=== PATIENT | female | born 1975 | race Caucasian/White ===

== ENCOUNTER 2018-09-04 13:49 | Emergency (ER) | payer MEDICAID, SELFPAY ==
[2018-09-04 14:06] VITALS: BP 149/98; PULSE 105; RESP 22; TEMP 37; O2SAT 100; BMI 21.1
[2018-09-04 14:36] VITALS: BP 149/98; PULSE 105; RESP 22; TEMP 37; O2SAT 100; BMI 21.1
--- NOTE | 2018-09-04 14:58 | HMH.EDUTC ---
[facility] [facility] [place] Clinical Impression: Scabies, Impetigo Disposition: Home, Self-Care Condition on Discharge: Good Instructions: Scabies, Impetigo, DI for Impetigo, DI for Scabies Additional Instructions: Drink plenty of fluids. Take tylenol or ibuprofen for pain or fever Take all the antibiotics as prescribed. Take oral benedryl for itching if you need to. Follow up with your regular doctor. GO TO THE ER FOR ANY WORSENING OR LIFE THREATENING SYMPTOMS Prescriptions: Mupirocin [Bactroban 2% Ointment 22gm tube] 1 applicatio TP TID 7 Days #1 tube Permethrin [Elimite] 1 applicatio TP ONCE #1 bottle cephALEXin [Keflex 500mg Cap] 500 mg PO Q6H 10 Days #40 cap methylPREDNISolone [Medrol] 4 mg PO DIRECTED 6 Days #21 [email or web address] Referrals: Walker Chairez [Primary Care Provider] - Time of Disposition: 15:23 Medical Decision Making - Medical Records Medical records reviewed: Yes: I reviewed the patient's medical records. - Chidi Inquiry Pt receiving controlled substance: No Chidi was queried for this patient: No Vital Signs: 09/04/18 14:06 09/04/18 14:36 09/04/18 15:44 Temperature 98.6 F 98.6 F 98.6 F Temperature Source Oral Oral Oral Pulse Rate 105 H Pulse Rate [Left Radial] 105 H 105 H Respiratory Rate 22 22 22 Blood Pressure 149/98 H Blood Pressure [Left Arm] 149/98 H 149/98 H Blood Pressure Mean [Left Arm] 115 115 Blood Pressure Source Automatic Cuff Blood Pressure Source [Left Arm] Automatic Cuff Automatic Cuff Blood Pressure Position Sitting Blood Pressure Position [Left Arm] Supine Supine 02 Sat by Pulse Oximetry 100 100 Oxygen Delivery Method Room Air Room Air Room Air Orders (Tests/Meds): ORDERS Category Date Time Status Wound Culture and Gram Stain Stat Micro 09/04/18 15:00 Results Medical Decision Narrative: culture of drainage taken from the worst lesion for gram stain and sensitivity. [facility] [place] - General Stated complaint: Skin Rash Time Seen by Provider: 09/04/18 14:40 Mode of Arrival: Ambulatory Source of Information: Patient Limitations: No Limitations Description of Symptoms (Recalled from Triage Doc. by RN): C/O RASH THAT HAS BEEN PROGRESSIVELY GETTING WORSE SINCE July HEENT Symptoms (Recalled from RN notes): No Resp Symptoms (Recalled from RN notes): No Skin Symptoms (Recalled from RN notes): Yes MS Symptoms (Recalled from RN notes): No Functional Status (Recalled from RN notes): wnl - History of Present Illness Provider Complaint: She states that she has been itching and having a rash for the past 2 weeks approx. Her boyfriend is having similar symptoms. She now has multiple scabbed lesions on her upper back and back of her neck. - Related Data Previous Rx's Medication Instructions Recorded Mupirocin [Bactroban 2% Ointment 1 applicatio TP TID 7 Days #1 tube 09/04/18 22gm tube] Permethrin [Elimite] 1 applicatio TP ONCE #1 bottle 09/04/18 cephALEXin [Keflex 500mg Cap] 500 mg PO Q6H 10 Days #40 cap 09/04/18 methylPREDNISolone [Medrol] 4 mg PO DIRECTED 6 Days #21 09/04/18 [email or web address] Allergies Allergy/AdvReac Type Severity Reaction Status Date / Time No Known Allergies Allergy Verified 09/04/18 14:39 - Worker's Comp Is this a Worker's Comp case?: No [facility] History - Hepatitis A Screen Drug use history?: No High risk sexual behaviors?: No History of sexually transmitted infection?: No Currently employed?: No Childcare worker?: No Do you have indoor plumbing?: Yes Do you have electricity?: Yes Attestation statement:: This patient has been screened for Hepatitis A risk factors. I have reviewed the patient's past medical history: Yes Laterality Cases: Bilateral: Tonsillectomy - Social History Educational Level: Completed High School Alcohol Intake: never Occupational Status: other Housing: apartment - Psychiatric History Expresses thoughts of harming self/others: None Suicide Plan
--- NOTE | 2018-09-04 15:08 | ED_ITS ---
[facility] – [place] Disposition Clinical Impression: Scabies, Impetigo Disposition: Home, Self-Care Condition on Discharge: Good Instructions: Scabies, Impetigo, DI for Impetigo, DI for Scabies Additional Instructions: Drink plenty of fluids. Take tylenol or ibuprofen for pain or fever Take all the antibiotics as prescribed. Take oral benedryl for itching if you need to. Follow up with your regular doctor. GO TO THE ER FOR ANY WORSENING OR LIFE THREATENING SYMPTOMS Prescriptions: Mupirocin [Bactroban 2% Ointment 22gm tube] 1 applicatio TP TID 7 Days #1 tube Permethrin [Elimite] 1 applicatio TP ONCE #1 bottle cephALEXin [Keflex 500mg Cap] 500 mg PO Q6H 10 Days #40 cap methylPREDNISolone [Medrol] 4 mg PO DIRECTED 6 Days #21 [email or web address] Referrals: Walker Chairez [Primary Care Provider] - Time of Disposition: 15:23 Medical Decision Making - Medical Records Medical records reviewed: Yes: I reviewed the patient's medical records. - Chidi Inquiry Pt receiving controlled substance: No Chidi was queried for this patient: No Vital Signs: 09/04/18 14:06 09/04/18 14:36 09/04/18 15:44 Temperature 98.6 F 98.6 F 98.6 F Temperature Source Oral Oral Oral Pulse Rate 105 H Pulse Rate [Left Radial] 105 H 105 H Respiratory Rate 22 22 22 Blood Pressure 149/98 H Blood Pressure [Left Arm] 149/98 H 149/98 H Blood Pressure Mean [Left Arm] 115 115 Blood Pressure Source Automatic Cuff Blood Pressure Source [Left Arm] Automatic Cuff Automatic Cuff Blood Pressure Position Sitting Blood Pressure Position [Left Arm] Supine Supine 02 Sat by Pulse Oximetry 100 100 Oxygen Delivery Method Room Air Room Air Room Air Orders (Tests/Meds): ORDERS Category Date Time Status Wound Culture and Gram Stain Stat Micro 09/04/18 15:00 Results Medical Decision Narrative: culture of drainage taken from the worst lesion for gram stain and sensitivity. [facility] [place] HPI - General Stated complaint: Skin Rash Time Seen by Provider: 09/04/18 14:40 Mode of Arrival: Ambulatory Source of Information: Patient Limitations: No Limitations Description of Symptoms (Recalled from Triage Doc. by RN): C/O RASH THAT HAS BEEN PROGRESSIVELY GETTING WORSE SINCE July HEENT Symptoms (Recalled from RN notes): No Resp Symptoms (Recalled from RN notes): No Skin Symptoms (Recalled from RN notes): Yes MS Symptoms (Recalled from RN notes): No Functional Status (Recalled from RN notes): wnl - History of Present Illness Provider Complaint: She states that she has been itching and having a rash for the past 2 weeks approx. Her boyfriend is having similar symptoms. She now has multiple scabbed lesions on her upper back and back of her neck. - Related Data Previous Rx's Medication Instructions Recorded Mupirocin [Bactroban 2% Ointment 1 applicatio TP TID 7 Days #1 tube 09/04/18 22gm tube] Permethrin [Elimite] 1 applicatio TP ONCE #1 bottle 09/04/18 cephALEXin [Keflex 500mg Cap] 500 mg PO Q6H 10 Days #40 cap 09/04/18 methylPREDNISolone [Medrol] 4 mg PO DIRECTED 6 Days #21 09/04/18 [email or web address] Allergies Allergy/AdvReac Type Severity Reaction Status
[2018-09-04 15:44] VITALS: BP 149/98; PULSE 105; RESP 22; TEMP 37; O2SAT 100
--- NOTE | 2018-09-06 09:26 | PC.NURSE ---
Critical lab value received from lab. Wound culture positive for mrsa. Dodie Chu APRN notified and medications changed and patient to be informed of results and changes
== END 2018-09-04 15:45 | disposition home or self-care (01) ==
LOC: ER 14:09 → UTC 14:14
PROVIDERS: Emergency Provider Nurse Practitioner Family; PCP Family Medicine
DX: L01.00 Impetigo, unspecified (principal); B86 Scabies
CPT/HCPCS: 87070; 87077; 87186; 87205; 99201

== ENCOUNTER 2019-10-06 16:45 | Emergency (ER) | payer MEDICAID, SELFPAY ==
[2019-10-06 17:00] VITALS: BP 00/00; PULSE 0; RESP 0; TEMP -17.7; TEMP 0
== END 2019-10-06 17:10 | disposition left against medical advice (07) ==
LOC: UTC 16:52
PROVIDERS: Emergency Provider Nurse Practitioner Family
DX: Z53.21 Procedure and treatment not carried out due to patient leaving prior to being seen by health care provider (principal); R51 Headache

== ENCOUNTER → 2019-12-31 15:50 | Outpatient (CLI) | payer MEDICAID, SELFPAY ==
--- NOTE | 2019-12-31 16:22 | MR_ITS ---
PROCEDURE: MR HEAD/BRAIN WO CON CLINICAL INDICATION: memory loss MEMORY LOSS, MIGRAINES WEEKLY, BELLS PALSY IN RIGHT EYE IN SEPTEMBER. ALTERED GAIT. NO PRIOR COMPARISON: No exams were available for comparison TECHNIQUE: Routine multiplanar multi echo sequences are performed without gadolinium enhancement. FINDINGS: No midline shift, mass effect, intracranial hemorrhage, or hydrocephalus is evident. The cerebellopontine angles, cerebellum, and brainstem have an unremarkable appearance. No evidence of acute infarction. There are perivascular dilated spaces in the basal ganglia. A cystic areas present in the left basal ganglia at 8 mm the and may be due to a choroidal fissure cyst as an incidental finding. The pituitary, optic chiasm, corpus callosum, and craniocervical junction have an unremarkable appearance. There is some bulging of the disc at C5-C6 which may be causing some mild canal stenosis. This however is on the edge of the imaging plane not well delineated. There is tortuous left-sided vertebral artery which is the dominant vertebral artery causing some flattening upon the left aspect of the brainstem which is of questionable clinical significance. Correlation with clinical findings needed as regarding the significance. No mastoid effusion. Mucosal thickening involves the ethmoid sinuses. IMPRESSION: 1. No acute intracranial findings. 2. Tortuous dominant left vertebral artery with some flattening of the brainstem on the left which is of questionable clinical significance. Correlation with clinical parameters and physical exam suggested 3. Mild ethmoid sinus disease Dictated by: Tyler Ramirez MD 01/01/2020 14:58 Tyler Ramirez MD in [place] 01/01/2020 14:58
== END ==
PROVIDERS: PCP Nurse Practitioner Family; Visit Provider Specialist
DX: G51.0 Bell's palsy (principal); G43.709 Chronic migraine without aura, not intractable, without status migrainosus; R41.3 Other amnesia; F10.11 Alcohol abuse, in remission; I10 Essential (primary) hypertension; R53.83 Other fatigue; Z86.69 Personal history of other diseases of the nervous system and sense organs; Z86.73 Personal history of transient ischemic attack (TIA), and cerebral infarction without residual deficits
CPT/HCPCS: 70551

== ENCOUNTER → 2020-01-07 13:51 | Outpatient (CLI) | payer MEDICAID, SELFPAY ==
[2020-01-07 14:14] LABS: Basophils # 0.1 K/mm3 (0-0.2); Basophils % 1.2 % (0.1-2.0); Eosinophils # 0.1 K/mm3 (0.0-0.4); Eosinophils % 1.7 % (0.1-12.0); Hematocrit 43.2 % (37.0-47.0); Hemoglobin 13.7 g/dL (12.2-16.2); Lymphocytes # 3.1 K/mm3 (0.7-4.5); Lymphocytes % 49.4 % (10-50); Mean Corpuscular HGB Conc 31.7 g/dL (31.8-35.4); Mean Corpuscular Hemoglobin 29.8 pg (27.0-31.2); Mean Corpuscular Volume 94.1 fl (81-99); Mean Platelet Volume 7.6 fl (7.4-10.4); Monocytes # 0.4 K/mm3 (0.1-1.0); Monocytes % 6.3 % (1.7-9.3); Neutrophils # 2.6 K/mm3 (1.8-7.8); Neutrophils % 41.4 % (37.0-80.0); Platelet Count 250 K/mm3 (142-424); Red Blood Count 4.59 M/mm3 (4.20-5.40); Red Cell Distribution Width 13.5 % (11.5-17.5); White Blood Count 6.4 K/mm3 (4.8-10.8)
[2020-01-07 14:34] LABS: Chloride 102 mmol/L (98-107); Potassium 4.2 mmoL/L (3.5-5.1); Sodium 137 mmol/L (136-145)
[2020-01-07 14:37] LABS: Alanine Aminotransferase 26 U/L (12-78); Albumin Level 4.2 g/dl (3.5-5.0); Albumin/Globulin Ratio 1.4 (1.1-1.8); Alkaline Phosphatase 117 U/L (38-126); Anion Gap 11.2 mEq/L (5-15); Aspartate Amino Transferase 37 U/L (14-36); Bilirubin,Total 0.3 mg/dl (0.2-1.3); Blood Urea Nitrogen 16 mg/dl (7-17); Carbon Dioxide 28 mmol/L (22.0-30.0); Estimated Glomerular Filt Rate 91 ml/min (>60); GFR (African American) 110 ML/MIN (>60); Globulin 3.1 g/dL (1.3-3.2); Glucose 103 mg/dl (74-100); Total Protein,Serum 7.3 g/dl (6.3-8.2)
[2020-01-07 15:06] LABS: Thyroid Stimulating Hormone 2.37 uIU/mL (0.465-4.68)
[2020-01-07 17:18] LABS: Vitamin B12 398 pg/mL (239-931)
[2020-01-07 17:43] LABS: Folate 3.87 ng/mL
[2020-01-14 11:11] LABS: Vitamin B1 226.9 nmol/L (66.5-200.0)
[2020-01-15 03:04] LABS: IgG P18 Ab. Present (.); IgG P23 Ab. Present (.); IgG P28 Ab. Present (.); IgG P30 Ab. Present (.); IgG P39 Ab. Present (.); IgG P41 Ab. Present (.); IgG P45 Ab. Present (.); IgG P58 Ab. Present (.); IgG P66 Ab. Absent (.); IgG P93 Ab. Present (.); IgM P23 Ab. Present (.); IgM P39 Ab. Absent (.); IgM P41 Ab. Present (.)
[2020-01-15 10:05] LABS: Lyme IgG WB Interp. Positive (.); Lyme IgM WB Interp. Positive (.)
== END ==
PROVIDERS: Visit Provider Nurse Practitioner Family
DX: F10.11 Alcohol abuse, in remission (principal); G43.709 Chronic migraine without aura, not intractable, without status migrainosus; G51.0 Bell's palsy; I10 Essential (primary) hypertension; R41.3 Other amnesia; R53.83 Other fatigue; Z86.69 Personal history of other diseases of the nervous system and sense organs; Z86.73 Personal history of transient ischemic attack (TIA), and cerebral infarction without residual deficits
CPT/HCPCS: 36415; 80053; 82607; 82746; 84425; 84443; 85025; 86617; 86618

== ENCOUNTER → 2020-02-02 16:41 | Outpatient (CLI) | payer MEDICAID, SELFPAY ==
[2020-02-02 21:27] LABS: Coronavirus 19 IgG Antibody Negative (Negative); Coronavirus 19 IgM Antibody Negative (Negative)
== END ==
PROVIDERS: Visit Provider Nurse Practitioner Family
DX: Z03.818 Encounter for observation for suspected exposure to other biological agents ruled out (principal)
CPT/HCPCS: 36415; 86328

== ENCOUNTER → 2020-02-09 13:10 | Outpatient (CLI) | payer MEDICAID, SELFPAY ==
[2020-02-09 15:27] LABS: Coronavirus 19 IgG Antibody Negative (Negative); Coronavirus 19 IgM Antibody Negative (Negative)
== END ==
PROVIDERS: Visit Provider Nurse Practitioner Family
DX: Z01.818 Encounter for other preprocedural examination (principal)
CPT/HCPCS: 36415; 86328

== ENCOUNTER → 2020-02-09 20:04 | Outpatient (CLI) | payer MEDICAID, SELFPAY | PROVIDERS: Visit Provider Nurse Practitioner Family | DX: I10 Essential (primary) hypertension (principal); G47.33 Obstructive sleep apnea (adult) (pediatric) | CPT/HCPCS: 95810 ==

== ENCOUNTER 2020-02-19 12:12 | Day surgery (SDC) | payer MEDICAID, SELFPAY ==
[2020-02-19 12:39] VITALS: BP 120/85; PULSE 94; RESP 18; TEMP 36.2; O2SAT 98; BMI 19.5
[2020-02-19 13:08] VITALS: BP 122/89; PULSE 85; RESP 18; TEMP 36.2; O2SAT 98
[2020-02-19 13:18] VITALS: BP 132/74; PULSE 85; RESP 18; O2SAT 98
--- NOTE | 2020-02-19 13:37 | HMH.PMPROC ---
- Procedure Date: 02/19/20 Time: 13:37 Anesthesiologist:: Ajay Silva MD Complications:: None Pre-procedure Diagnosis:: Headache with diagnosis of Lyme disease Post-procedure Diagnosis:: Same Indications for Procedure:: This patient is a pleasant 44-year-old white female who is referred by Dr. Castillo for diagnostic lumbar puncture. Patient has a working diagnosis of Lyme disease. 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 We will do a lumbar puncture under fluoroscopy today to send fluid off for indicated studies over ordered by Dr. Castillo. Procedure Details:: Informed consent was obtained and the risk and benefits of the procedure was explained to the patient. Patient was taken to the procedure room placed in left lateral decubitus position. C-arm fluoroscopy was used for skin and subcutaneous tissues overlying the L4-L5 interspace were anesthetized using lidocaine. A 20-gauge spinal needle was inserted and advanced into the intrathecal space. After obtaining clear CSF opening pressures were taken and found to be 22 cm of water. We then filled 4 tubes full of clear CSF. There is approximately 4 mL in each tube. We took off approximately 18 mL of clear CSF. Closing pressures were found to be 7 cm of water. Needle was removed a Band-Aid was placed. The patient was taken to recovery in stable condition. Patient was discharged home neurologically intact with no headache. I did correctional substance abuse counselor the patient on conservative treatments for post dural puncture headache. Plan and disposition: We will follow-up with this patient as needed. CSF was sent for indicated studies ordered by Dr. Castillo. Plan and Disposition:: Plan and disposition: We will follow-up with this patient as needed. CSF was sent for indicated studies ordered by Dr. Castillo.
[2020-02-19 13:38] VITALS: BP 116/76; PULSE 70; RESP 20; O2SAT 95
== END 2020-02-19 13:39 | disposition home or self-care (01) ==
LOC: SC.PAINP 12:13
PROVIDERS: Visit Provider Anesthesiology
DX: A69.29 Other conditions associated with Lyme disease (principal); G44.89 Other headache syndrome; G51.0 Bell's palsy; I10 Essential (primary) hypertension; F19.11 Other psychoactive substance abuse, in remission; E78.5 Hyperlipidemia, unspecified; K21.9 Gastro-esophageal reflux disease without esophagitis; F41.9 Anxiety disorder, unspecified; F32.9 Major depressive disorder, single episode, unspecified; M19.90 Unspecified osteoarthritis, unspecified site; Z87.39 Personal history of other diseases of the musculoskeletal system and connective tissue; Z72.0 Tobacco use
CPT/HCPCS: 62270

== ENCOUNTER → 2020-02-19 13:46 | Outpatient (CLI) | payer MEDICAID, SELFPAY ==
[2020-02-19 14:24] LABS: Glucose,CSF 50 mg/dl (40-70)
[2020-02-19 14:39] LABS: Appearance,CSF Clear (Clear); Red Blood Cell,CSF 0 cells/uL (0); Volume,CSF 16 mL; White Blood Cell,CSF 6 cells/uL (0-5)
[2020-02-19 15:03] LABS: Mononuclear WBCs,CSF 0 %; Polynuclear WBCs,CSF 3 %
[2020-02-26 20:14] LABS: CSF Lyme (B. burgdorferi) PCR Negative (Negative)
== END ==
PROVIDERS: Visit Provider Specialist
DX: A69.20 Lyme disease, unspecified (principal); R51.9 Headache, unspecified; R41.3 Other amnesia
CPT/HCPCS: 36415; 82945; 83916; 84155; 87070; 87102; 87116; 87205; 87206; 87476; 89051

== ENCOUNTER → 2020-03-22 10:02 | Outpatient (CLI) | payer MEDICAID, SELFPAY ==
[2020-03-22 11:46] LABS: Uric Acid 5.2 mg/dl (2.5-6.2)
[2020-03-22 12:39] LABS: Erythrocyte Sedimentation Rate 6 mm/hr (0-20)
[2020-03-23 09:51] LABS: RA Latex Turbid. 12.7 IU/mL (0.0-13.9)
[2020-03-23 12:26] LABS: Anti-Centromere B Antibodies <0.2 AI (0.0-0.9); Anti-Jo-1 <0.2 AI (0.0-0.9); Anti-Smith Antibody <0.2 AI (0.0-0.9); Antichromatin Antibodies <0.2 AI (0.0-0.9); Antiscleroderma-70 Antibodies <0.2 AI (0.0-0.9); RNP Antibodies <0.2 AI (0.0-0.9); Sjogren's Anti-SS-A <0.2 AI (0.0-0.9); Sjogren's Anti-SS-B <0.2 AI (0.0-0.9)
[2020-03-23 13:35] LABS: Anti-DNA (DS) Ab Qn 1 IU/mL (0-9)
[2020-03-23 23:24] LABS: Antinuclear Antibodies, IFA Negative (.)
== END ==
PROVIDERS: Visit Provider Specialist
DX: M19.90 Unspecified osteoarthritis, unspecified site (principal); M25.50 Pain in unspecified joint; G51.0 Bell's palsy; R51.9 Headache, unspecified
CPT/HCPCS: 36415; 84550; 85651; 86038; 86225; 86235; 86431

== ENCOUNTER → 2020-04-06 10:18 | Outpatient (CLI) | payer MEDICAID, SELFPAY ==
--- NOTE | 2020-04-06 10:29 | XR_ITS ---
PROCEDURE: XR KNEE LT 4V CLINICAL INDICATION: left knee pain COMPARISON: No exams were available for comparison FINDINGS: No fracture or dislocation. No lytic or blastic change. There is normal mineralization. There are median more osteoarthritic changes of the medial compartment and patellofemoral joint. Other findings:None. IMPRESSION: Minimal osteoarthritis Dictated by: Tyler Ramirez MD 04/06/2020 16:55 Tyler Ramirez MD in [place] 04/06/2020 16:55
== END ==
PROVIDERS: PCP Nurse Practitioner Family; Visit Provider Orthopaedic Surgery
DX: M25.562 Pain in left knee (principal)
CPT/HCPCS: 73564

== ENCOUNTER 2021-01-24 15:07 | Emergency (ER) | payer SELFPAY ==
[2021-01-24 15:27] VITALS: BP 158/97; PULSE 112; RESP 18; TEMP 36.9; O2SAT 100; BMI 19.5
--- NOTE | 2021-01-24 15:43 | XR_ITS ---
PROCEDURE: XR SHOULDER LT MIN 2V CLINICAL INDICATION: pain COMPARISON: No exams were available for comparison FINDINGS: No fracture or dislocation. No lytic or blastic change. There is normal mineralization. The joint spaces are well-preserved. No significant degenerative/arthritic changes. No erosive changes evident. Other findings:None. IMPRESSION: No acute findings. Dictated by: Tyler Ramirez MD 01/24/2021 16:39 Tyler Ramirez MD in [place] 01/24/2021 16:39
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
[2021-01-24 16:56] VITALS: BP 158/97; PULSE 112; RESP 18; TEMP 36.9; O2SAT 100
== END 2021-01-24 16:57 | disposition home or self-care (01) ==
PROVIDERS: Emergency Provider Family Medicine
DX: M25.512 Pain in left shoulder (principal); V03.90XA Pedestrian on foot injured in collision with car, pick-up truck or van, unspecified whether traffic or nontraffic accident, initial encounter; Y92.414 Local residential or business street as the place of occurrence of the external cause; F41.8 Other specified anxiety disorders; E78.5 Hyperlipidemia, unspecified; I10 Essential (primary) hypertension; F17.210 Nicotine dependence, cigarettes, uncomplicated; Z79.899 Other long term (current) drug therapy
CPT/HCPCS: 73030; 99282

== ENCOUNTER → 2021-05-18 15:39 | Outpatient (CLI) | payer MEDICAID, SELFPAY ==
[2021-05-25 00:07] LABS: IgG P18 Ab. Present (.); IgG P23 Ab. Absent (.); IgG P28 Ab. Absent (.); IgG P30 Ab. Absent (.); IgG P39 Ab. Present (.); IgG P41 Ab. Present (.); IgG P45 Ab. Absent (.); IgG P58 Ab. Present (.); IgG P66 Ab. Absent (.); IgG P93 Ab. Present (.); IgM P23 Ab. Present (.); IgM P39 Ab. Absent (.); IgM P41 Ab. Present (.); Lyme IgG WB Interp. Positive (.); Lyme IgM WB Interp. Positive (.)
== END ==
PROVIDERS: Visit Provider Specialist
DX: R51.9 Headache, unspecified (principal); Z86.19 Personal history of other infectious and parasitic diseases; Z01.84 Encounter for antibody response examination
CPT/HCPCS: 36415; 86617; 86618

== ENCOUNTER 2024-04-19 12:25 | Emergency (ER) | payer MEDICAID, SELFPAY ==
[2024-04-19 13:15] VITALS: BP 158/107; PULSE 91; RESP 18; TEMP 36.6; O2SAT 99; BMI 27.9
--- NOTE | 2024-04-19 14:08 | ED_ITS ---
Discharge Plan Disposition Patient Disposition: Home, Self-Care Condition: Good Prescriptions Prescriptions: New hydroxyzine HCl 25 mg tablet 25 mg PO TID PRN (Reason: itching) Qty: 90 0RF mupirocin 2 % ointment 1 applic topical TID Qty: 22 1RF doxycycline hyclate 100 mg capsule 100 mg PO BID 10 Days Qty: 20 0RF No Action amlodipine 10 mg tablet 10 mg PO DAILY amitriptyline 25 mg tablet 25 mg PO QHS Patient Comments: TAKE ONE TABLET BY MOUTH EVERY DAY AT BEDTIME atenolol 50 mg tablet 25 mg PO DAILY Patient Comments: TAKE ONE HALF (1/2) TABLET EVERY DAY BY ORAL ROUTE DIRECTED FOR 14 DAYS. albuterol sulfate [ProAir HFA] 90 mcg/actuation HFA aerosol inhaler 1 puff INHALATION PRN Patient Comments: INHALE TWO (2) PUFFS BY INHALATION ROUTE EVERY FOUR (4) HOURS NEEDED hydroxyzine HCl 25 mg tablet 25 mg PO HS Patient Comments: TAKE ONE (1) TABLET EVERY DAY BY ORAL ROUTE AT BEDTIME venlafaxine 75 mg capsule,extended release 24hr 75 mg PO DAILY Patient Comments: TAKE ONE (1) CAPSULE EVERY DAY BY ORAL ROUTE DIRECTED Emgality Pen 120 mg/mL pen injector 120 mg SQ QMONTH Qty: 1 6RF Nurtec ODT 75 mg tablet,disintegrating 75 mg PO Q OTHER DAY Qty: 15 0RF rimegepant [Nurtec ODT] 75 mg tablet,disintegrating 75 mg PO NEEDED PRN (Reason: Migraine Headache) 0RF galcanezumab-gnlm [Emgality Pen] 120 mg/mL pen injector 0RF doxycycline hyclate 100 mg capsule 100 mg PO BID Qty: 60 0RF meloxicam 15 mg tablet 15 mg PO DAILY sertraline 50 mg tablet 50 mg PO DAILY tiotropium bromide [Spiriva with HandiHaler] 18 mcg capsule, w/inhalation device 18 mcg INHALATION DAILY Referrals Follow up/Referrals: Provider,Referral, MD [Primary Care Provider] - See instructions Activity Restrictions/Add. Instructions Additional Instructions/Restrictions: Take medication as prescribed. Increase fluids and rest. Establish primary care provider for follow up. Clinical Impressions Clinical Impression: Impetigo Instructions Patient Instructions: DI for Impetigo Print Language Print Language: Kinyarwanda Discharge ED Provider: Dee Lee [facility] HPI General Stated complaint: rash on left arm, nauseous Mode of Arrival: Ambulatory Source of Information: Patient Time Seen by Provider: 04/19/24 13:26 Description of Symptoms (Recalled from Triage Doc. by RN): RASH AND NAUSEA, ALL OVER, HISTORY OF MRSA PT STATES FEELS LIKE THERE IS A SEED OR HARD PIECE INSIDE OF SORE. STARTS SMALL RAISE BUMP THEN STARTS TO ITCH HEENT Symptoms (Recalled from RN notes): No Resp Symptoms (Recalled from RN notes): No Skin Symptoms (Recalled from RN notes): Yes MS Symptoms (Recalled from RN notes): No Functional Status (Recalled from RN notes): WNL History of Present Illness Provider Complaint: RASH AND NAUSEA, ALL OVER, HISTORY OF MRSA PT STATES FEELS LIKE THERE IS A SEED OR HARD PIECE INSIDE OF SORE. STARTS SMALL RAISE BUMP THEN STARTS TO ITCH. Pt states that she picks at sores a lot due to anxiety. Related Data Home Medications ?Medication ?Instructions ?Recorded ?Confirmed amitriptyline 25 mg tablet 25 mg PO QHS 12/24/19 04/19/24 amlodipine 10 mg tablet 10 mg PO DAILY 12/24/19 04/19/24 albuterol sulfate 90 mcg/actuation 1 puff inhalation PRN 05/18/21 05/18/21 aerosol inhaler (ProAir HFA) atenolol 50 mg tablet 25 mg PO DAILY 05/18/21 05/18/21 hydroxyzine HCl 25 mg tablet 25 mg PO HS 05/18/21 04/19/24 venlafaxine 75 mg capsule,extended 75 mg PO DAILY 05/18/21 05/18/21 release 24 hr meloxicam 15 mg tablet 15 mg PO DAILY 04/19/24 04/19/24 sertraline 50 mg tablet 50 mg PO DAILY 04/19/24 04/19/24 tiotropium bromide 18 mcg capsule 18 mcg inhalation DAILY 04/19/24 04/19/24 with inhalation device (Spiriva with HandiHaler) Previous Rx's ?Medication ?Instructions ?Recorded galcanezumab-gnlm 120 mg/mL 120 mg SQ QMONTH Intractable 05/18/21 subcutaneous pen injector migraine #1 mL (Emgality Pen) rimegepant 75 mg disintegrating 75 mg PO Q OTHER DAY #15 tabs 05/18/21 tablet (Nurtec ODT) doxycycline hyclate 100 mg capsule 100 mg PO BID #60 caps 05/29/21 doxycycline hyclate 100 mg capsule 100 mg PO BID 10 days #20 caps 04/19/24 hydroxyzine HCl 25 mg tablet 25 mg PO TID PRN itching #90 tabs 04/19/24 mupirocin 2 % topical ointment 1 applic topical TID #22 grams 04/19/24 Allergies Allergy/AdvReac Type Severity Reaction Status Date / Time No Known Allergies Allergy Verified 05/18/21 14:01 Worker's Comp Is this a Worker's Comp case?: No [facility] Disclaimer: The information contained in this section may have been updated after the patient was seen, as this information can be updated by other users. Social History Smoking Status: Current every day smoker tobacco type: cigarettes packs per day: 1 second hand exposure: No alcohol intake: former substance use type: former substance user, marijuana, crack/cocaine and heroin current occupational status: other Travel in the last 8 weeks: None household members: none housing: other current occupational exposures/hazards: No Have you lived/traveled outside [place] in past 30 days?: No Contact w/someone who lives/traveled outside [place] past 30 days?: No Exposure to someone with infectious disease in past 14 days?: No Do you have a fever (greater than 100.4 F or 38 C)?: No Have you tested positive for COVID-19: No Exposed to someone with COVID-19 in past 14 days?: No Do you have a sore throat?: No Do you have a cough?: No Do you have any weakness?: No Do you have any diarrhea?: No Are you experiencing any unusual bleeding?: No Do you have any muscle aches/pain?: No Do you have any abdominal pain?: No Are you experiencing loss of taste or smell?: No ROS Obtained: Yes All systems reviewed & no additional complaints except as documented Constitutional Constitutional: Reports system reviewed and no additional complaints, except as documented Eyes Eyes: Reports system reviewed and no additional complaints, except as documented ENT Ears, Nose, Mouth, and Throat: Reports system reviewed and no additional complaints, except as documented Cardiovascular Cardiovascular: Reports system reviewed and no additional complaints, except as documented Respiratory Respiratory: Reports system reviewed and no additional complaints, except as documented Gastrointestinal Gastrointestingal: Reports system reviewed and no additional complaints, except as documented and nausea Genitourinary Female Genitourinary: Reports system reviewed and no additional complaints, except as documented Musculoskeletal Musculoskeletal: Reports system reviewed and no additional complaints, except as documented Integumentary/Breasts Skin/Breast: Reports system reviewed and no additional complaints, except as documented, Reports lesions, Reports new lesions, Reports pruritus and Reports sores Neurologic Neurologic: Reports system reviewed and no additional complaints, except as documented Endocrine Endocrine: Reports system reviewed and no additional complaints, except as documented Hematologic/Lymphatic Henatologic/Lymphatic: Reports system reviewed and no additional complaints, except as documented Allergic/Immunologic Allergic/Immunologic: Reports system reviewed and no additional complaints, except as documented Physical Exam General General appearance: alert and in no apparent distress Head Head exam: atraumatic and normocephalic Eye Eye exam: Present normal appearance ENT ENT exam: Present normal exam Neck Neck exam: Present normal inspection Chest Chest inspection: Present normal inspection and symmetric chest wall rise Respiratory Respiratory exam: Present normal lung sounds bilaterally Cardiovascular Cardiovascular exam: Present regular rate and normal rhythm Abdominal Exam Abdominal exam: Present soft Extremities Exam Extremities exam: Present normal inspection Back Exam Back exam: Present normal inspection Neurological Exam Neurological exam: Present alert and oriented X3 Psychiatric Psychiatric exam: Present normal affect and normal mood Skin Skin exam: Present other Expanded Skin Exam Type of lesion: Present other Distribution: neck, LUE and LLE Description: Present crusting (yellow crust) and other (Pt has multiple small sores over bilateral arms and on neck/upper back area. ) Lymphatic Lymphatic Findings: no adenopathy Medical Decision Making Medical Records Screening: Per USPSTF and CDC recommendations, given the prevalence of disease in our region, it is our hospital?s policy to screen for HIV and viral Hepatitis for all patients aged 18 and over and those with ongoing risk factors. Chidi Inquiry Pt receiving controlled substance: No Chidi was queried for this patient: No Vital Signs: 04/19/24 13:15 Temperature 97.9 F Temperature Source Oral Pulse Rate [Left Radial] 91 H Respiratory Rate 18 Blood Pressure [Left Arm] 158/107 H Blood Pressure Mean [Left Arm] 124 02 Sat by Pulse Oximetry 99
[2024-04-19 14:34] VITALS: BP 126/89; PULSE 90; RESP 18; TEMP 36.6
== END 2024-04-19 14:35 | disposition home or self-care (01) ==
PROVIDERS: Emergency Provider Nurse Practitioner Family
DX: L01.00 Impetigo, unspecified (principal)
CPT/HCPCS: 99212; G0381

== ENCOUNTER 2024-04-24 15:00 | Outpatient (CLI) | payer MEDICAID, SELFPAY ==
[2024-04-24 18:04] LABS: Basophils # 0.1 K/mm3 (0-0.2); Basophils % 0.6 % (0.1-2.0); Eosinophils # 0.1 K/mm3 (0.0-0.4); Eosinophils % 0.9 % (0.1-12.0); Hematocrit 42.4 % (37.0-47.0); Hemoglobin 14.4 g/dL (12.2-16.2); Lymphocytes # 2.6 K/mm3 (0.7-4.5); Lymphocytes % 24.9 % (10-50); Mean Corpuscular Hemoglobin 30.8 pg (27.0-31.2); Mean Corpuscular Volume 90.8 fl (81-99); Mean Platelet Volume 10.4 fl (7.4-10.4); Monocytes # 0.9 K/mm3 (0.1-1.0); Monocytes % 8.6 % (1.7-9.3); Neutrophils # 6.8 K/mm3 (1.8-7.8); Neutrophils % 64.7 % (37.0-80.0); Platelet Count 344 K/mm3 (142-424); Red Blood Count 4.67 M/mm3 (4.20-5.40); Red Cell Distribution Width 12.9 % (11.5-17.5); White Blood Count 10.5 K/mm3 (4.8-10.8)
[2024-04-24 19:15] LABS: Alanine Aminotransferase 17 U/L (12-78); Albumin Level 4.6 g/dl (3.5-5.0); Alkaline Phosphatase 116 U/L (38-126); Anion Gap 14.9 mEq/L (5-15); Aspartate Amino Transferase 22 U/L (14-36); Bilirubin,Total 0.5 mg/dl (0.2-1.3); Blood Urea Nitrogen 15 mg/dl (7-17); Calcium 10.1 mg/dl (8.4-10.2); Carbon Dioxide 17 mmol/L (22.0-30.0); Chloride 111 mmol/L (98-107); Chol/HDL Ratio 5.1 (1-3.5); Cholesterol 244 mg/dl (140-200); Estimated Glomerular Filt Rate 59 ml/min (>60); GFR (African American) 72 ML/MIN (>60); Globulin 2.3 g/dL (1.3-3.2); Glucose 105 mg/dl (74-100); HDL Cholesterol 48 mg/dl (40-60); Potassium 3.9 mmoL/L (3.5-5.1); Sodium 139 mmol/L (136-145); Total Protein,Serum 6.9 g/dl (6.3-8.2); Triglycerides 98 mg/dl (30-150); Uric Acid 7.1 mg/dl (2.5-6.2); VLDL Cholesterol 20 mg/dL (0-40)
[2024-04-24 19:26] LABS: Direct LDL Cholesterol 163.08 mg/dL (100-129)
[2024-04-24 19:32] LABS: Free T4 (Free Thyroxine) 1.47 ng/dl (0.78-2.19)
[2024-04-24 19:48] LABS: Thyroid Stimulating Hormone 0.58 uIU/mL (0.465-4.68)
[2024-04-24 21:35] LABS: Erythrocyte Sedimentation Rate 20 mm/hr (0-20)
[2024-04-26 08:09] LABS: RA Latex Turbid. 14.9 IU/mL (<14.0)
[2024-04-28 09:43] LABS: Antinuclear Antibodies, IFA POSITIVE
== END 2024-04-24 23:59 | disposition home or self-care (01) ==
LOC: LAB.DROPOF 04-25 08:39
PROVIDERS: PCP Family Medicine; Visit Provider Family Medicine
DX: I10 Essential (primary) hypertension (principal); M06.9 Rheumatoid arthritis, unspecified; K59.00 Constipation, unspecified; R63.5 Abnormal weight gain; J44.9 Chronic obstructive pulmonary disease, unspecified; Z72.0 Tobacco use
CPT/HCPCS: 80053; 80061; 84439; 84443; 84550; 85025; 85651; 86038; 86431; 87522; 87536

== ENCOUNTER 2024-05-08 16:41 | Outpatient (CLI) | payer MEDICAID, SELFPAY ==
--- NOTE | 2024-05-08 16:45 | MM_ITS ---
PROCEDURE INFORMATION: Exam: MG Bilateral Screening 3D Mammography Exam date and time: 05/08/2024 4:46 PM Age: 48 years old Clinical indication: Screening mammogram TECHNIQUE: Imaging protocol: Bilateral Screening tomosynthesis and 2D mammography including computer-aided detection (CAD) when performed. COMPARISON: 1. MG Diagnostic Mamm Unil w/cad 07/15/2017 1:33 PM 2. MG Diag Mamm Xander w/cad 11/29/2016 11:56 AM 3. US R BREAST-AXILLA IF PERF LTD 07/15/2017 1:51 PM 4. US L BREAST-AXILLA IF PERF LTD 11/29/2016 1:53 PM FINDINGS: MAMMOGRAPHY: Breast composition: There are scattered areas of fibroglandular density. Mass: None. Architectural distortion: No new or suspicious architectural distortion. Calcifications: No new or suspicious calcifications are present Asymmetric density: No new or suspicious asymmetric density is present Skin thickening: None. Axillary adenopathy: None. IMPRESSION: No mammographic evidence of malignancy. Recommend annual screening mammography unless otherwise clinically indicated. ASSESSMENT: BI-RADS category 1: Negative.
== END 2024-05-08 23:59 | disposition home or self-care (01) ==
LOC: RAD 16:42
PROVIDERS: PCP Family Medicine; Visit Provider Family Medicine
DX: Z12.31 Encounter for screening mammogram for malignant neoplasm of breast (principal)
CPT/HCPCS: 77063; 77067

== ENCOUNTER 2024-07-14 15:52 | Outpatient (CLI) | payer MEDICAID, SELFPAY ==
[2024-07-14 17:07] LABS: Chloride 107 mmol/L (98-107); Sodium 135 mmol/L (136-145)
[2024-07-14 17:10] LABS: Alanine Aminotransferase 34 U/L (12-78); Albumin/Globulin Ratio 1.4 (1.1-1.8); Alkaline Phosphatase 131 U/L (38-126); Aspartate Amino Transferase 30 U/L (14-36); Bilirubin,Indirect 0.3 mg/dL (0.0-0.9); Bilirubin,Total 0.3 mg/dl (0.2-1.3); Bilirubin,Unconjugated 0.3 mg/dL (0.0-1.1); Blood Urea Nitrogen 8 mg/dl (7-17); Carbon Dioxide 23 mmol/L (22.0-30.0); Cholesterol 161 mg/dl (140-200); Estimated Glomerular Filt Rate 67 ml/min (>60); GFR (African American) 81 ML/MIN (>60); Globulin 2.8 g/dL (1.3-3.2); Glucose 93 mg/dl (74-100); Total Protein,Serum 6.8 g/dl (6.3-8.2); Triglycerides 84 mg/dl (30-150); VLDL Cholesterol 17 mg/dL (0-40)
[2024-07-14 17:11] LABS: Calcium 9.1 mg/dl (8.4-10.2); Chol/HDL Ratio 2.6 (1-3.5); HDL Cholesterol 62 mg/dl (40-60)
[2024-07-14 17:22] LABS: Direct LDL Cholesterol 69.58 mg/dL (100-129)
== END 2024-07-14 23:59 | disposition home or self-care (01) ==
PROVIDERS: PCP Family Medicine; Visit Provider Family Medicine
DX: I10 Essential (primary) hypertension (principal); F11.91 Opioid use, unspecified, in remission
CPT/HCPCS: 36415; 80053; 80061; 82248